=== PATIENT | male | born 1995 | race Caucasian/White ===

== ENCOUNTER 2017-02-19 03:20 | Emergency (ER) | payer OTHER ==
[2017-02-19] MEDS ORDERED: ONDANSETRON 4 MG TAB.RAPDIS PO ONE ×2 (03:24→05:51)
[2017-02-19 04:44] LABS: HEMOGLOBIN 16.6 g/dL (13.5-17.0); HGB HCT DIFFERENCE 3.8; MEAN CORPUSCULAR HEMOGLOBIN 30.6 pg (27.0-33.4); MEAN CORPUSCULAR HGB CONC 36.1 g/dL (32.0-36.0); MEAN CORPUSCULAR VOLUME 85 fl (80-97); RED BLOOD COUNT 5.42 10^6/uL (4.35-5.55); RED CELL DISTRIBUTION WIDTH 12.4 % (11.5-14.0); WHITE BLOOD COUNT 12.7 10^3/uL (4.0-10.5)
[2017-02-19 04:53] LABS: ALANINE AMINOTRANSFERASE 29 U/L (21-72); ALBUMIN 5.1 g/dL (3.5-5.0); ALKALINE PHOSPHATASE 58 U/L (38-126); ANION GAP 17 (5-19); ASPARTATE AMINO TRANSFERASE 20 U/L (17-59); BILIRUBIN,DIRECT 0.4 mg/dL (0.0-0.4); BILIRUBIN,TOTAL 1.5 mg/dL (0.2-1.3); BLOOD UREA NITROGEN 19 mg/dL (7-20); CARBON DIOXIDE 23 mmol/L (22-30); CHLORIDE 101 mmol/L (98-107); CREATININE RESULT 0.96 mg/dL (0.52-1.25); GLUCOSE 123 mg/dL (75-110); LIPASE 20.6 U/L (23-300); POTASSIUM 4.2 mmol/L (3.6-5.0); SODIUM 140.7 mmol/L (137-145); TOTAL PROTEIN 8.6 g/dL (6.3-8.2)
[2017-02-19 05:12] LABS: BAND NEUTROPHILS % (MANUAL) 7 % (3-5); BASOPHILS % (MANUAL) 0 % (0-2); EOSINOPHILS % (MANUAL) 0 % (0-6); LYMPHOCYTES % (MANUAL) 8 % (13-45); TOTAL CELLS COUNTED 100
[2017-02-19 05:14] LABS: RBC MORPHOLOGY COMMENT NORMO-CYTIC/CHROMIC; TOXIC VACUOLATION PRESENT
[2017-02-19] MEDS ORDERED: NORMAL SALINE 1000 ML 2,000 ML IV ONE (05:22)
[2017-02-19 05:38] LABS: APPEARANCE,URINE SLIGHTLY-CLOUDY; BILIRUBIN,URINE NEGATIVE (NEGATIVE); GLUCOSE, URINE NEGATIVE (NEGATIVE); KETONES,URINE TRACE mg/dL (NEGATIVE); LEUKOCYTE ESTERASE,URINE NEGATIVE (NEGATIVE); NITRITE,URINE NEGATIVE (NEGATIVE); PROTEIN,URINE 30 mg/dL (NEGATIVE); URINE SPECIFIC GRAVITY 1.026; UROBILINOGEN,URINE NEGATIVE mg/dL (<2.0)
--- NOTE | 2017-02-19 05:50 | ER Document Report ---
ED GI/ - General Chief Complaint: Nausea/Vomiting/Diarrhea Stated Complaint: ABDOMINAL PAIN Time Seen by Provider: 02/19/17 05:21 Mode of Arrival: Ambulatory Information source: Patient Notes: 21 yo male left [place] tuesday, ate at [employer] at [facility], started getting nauseous on airplane. "knew it was the food". Got back to [place], made himself throw up. Then vomited multiple times, then got dirrahea x 4. Thinks he had food poisening, wants to drink water now. TRAVEL OUTSIDE OF THE [place] IN LAST 30 DAYS: No - Related Data Allergies/Adverse Reactions: amoxicillin [From Augmentin] Allergy (Verified 02/19/17 03:25) clavulanic acid [From Augmentin] Allergy (Verified 02/19/17 03:25) Past Medical History - General Information source: Patient - Social History Smoking Status: Never Smoker Frequency of alcohol use: Occasional Drug Abuse: None Occupation: [employer] [place] Lives with: Spouse/Significant other Family History: Reviewed & Not Pertinent Renal/ Medical History: Denies: Hx Peritoneal Dialysis Review of Systems - Review of Systems Constitutional: No symptoms reported EENT: No symptoms reported Cardiovascular: No symptoms reported Respiratory: No symptoms reported Gastrointestinal: See HPI Genitourinary: No symptoms reported Male Genitourinary: No symptoms reported Musculoskeletal: No symptoms reported Skin: No symptoms reported Hematologic/Lymphatic: No symptoms reported Neurological/Psychological: No symptoms reported Physical Exam - Vital signs Vitals: Temp Pulse Resp BP Pulse Ox 97.6 F 94 20 128/74 H 99 02/19/17 03:26 02/19/17 03:26 02/19/17 03:26 02/19/17 03:26 02/19/17 03:26 Interpretation: Normal - General General appearance: Appears well, Alert - HEENT Head: Normocephalic, Atraumatic Eyes: Normal Conjunctiva: Normal Pupils: PERRL Mucous membranes: Dry Neck: Supple. No: Lymphadenopathy - Respiratory Respiratory status: No respiratory distress Chest status: Nontender Breath sounds: Normal Chest palpation: Normal - Cardiovascular Rhythm: Regular Heart sounds: Normal auscultation Murmur: No - Abdominal Inspection: Normal Distension: No distension Bowel sounds: Normal Tenderness: Nontender. No: Tender Organomegaly: No organomegaly - Back Back: Normal, Nontender. No: CVA tenderness - Extremities General upper extremity: Normal inspection, Nontender, Normal color, Normal ROM , Normal temperature General lower extremity: Normal inspection, Nontender, Normal color, Normal ROM , Normal temperature, Normal weight bearing. No: Maria Ines's sign - Neurological Neuro grossly intact: Yes Cognition: Normal Orientation: AAOx4 Telferner Coma Scale Eye Opening: Spontaneous Telferner Coma Scale Verbal: Oriented Glenn Coma Scale Motor: Obeys Commands Telferner Coma Scale Total: 15 Speech: Normal Motor strength normal: LUE, RUE, LLE, RLE Sensory: Normal - Psychological Associated symptoms: Normal affect, Normal mood - Skin Skin Temperature: Warm Skin Moisture: Dry Skin Color: Normal Course - Re-evaluation Re-evalutation: 02/19/17 07:04 Feels better after 2 bags of normal saline. He is Down oral fluids and some crackers and is ready to be discharged. - Vital Signs Vital signs: Temp Pulse Resp BP Pulse Ox 97.6 F 94 20 128/74 H 99 02/19/17 03:26 02/19/17 03:26 02/19/17 03:26 02/19/17 03:26 02/19/17 03:26 - Laboratory Result Diagrams: 02/19/17 04:30 02/19/17 04:30 Laboratory results interpreted by me: 02/19/17 02/19/17 02/19/17 04:30 04:30 05:00 WBC 12.7 H MCHC 36.1 H Seg Neuts % (Manual) 80 H Band Neutrophils % 7 H Lymphocytes % (Manual) 8 L Abs Neuts (Manual) 11.0 H Glucose 123 H Total Bilirubin 1.5 H Total Protein 8.6 H Albumin 5.1 H Lipase 20.6 L Urine Protein 30 H Urine Ketones TRACE H Discharge - Discharge Clinical Impression: Vomiting and diarrhea, Dehydration Condition: Good Disposition: HOME, SELF-CARE Instructions: Dehydration ([facility]), Diarrhea, Nonspecific ([facility]), Intravenous (IV) Fluids ([facility]), Vomiting ([facility]) Additional Instructions: see your sick call for recheck tuesday plenty of fluids, advance diet as tolerated return to er if worse copy of labs given to you Please complete the patient satisfaction survey if you get one, and return it.. If you do not receive a survey, then you can go to the [facility] website, [email or web address] and place your comments about your very good care. Thank you very much. It was a pleasure being your medical provider today. Prescriptions: Promethazine HCl [Phenergan 25 mg Tablet] 25 mg PO Q4HP PRN #20 tablet PRN Reason: Forms: Return to Work
[2017-02-19 07:18] VITALS: BP 122/78
== END 2017-02-19 07:06 | disposition home or self-care (01) ==
LOC: ER 03:20
DX: E86.0 Dehydration (principal); R11.2 Nausea with vomiting, unspecified; R19.7 Diarrhea, unspecified; Z88.0 Allergy status to penicillin
CPT/HCPCS: 99283; 96360; 36415; 83690; 85025; 80053; 81001; S0119; J7030